=== PATIENT | male | born 1970 | race Caucasian/White ===

== ENCOUNTER 2024-06-22 13:00 | Observation (INO) ==
[2024-06-22] MEDS: NOZIN NASAL SANITIZER TP ONE (10:24)
[2024-06-22] MEDS: NS 1,000 ML IV 1,000 ML ONE (10:45)
[2024-06-22 11:23] VITALS: BMI 24.1
[~2024-06-22 13:00] MED LIST: BARHEMSYS INJ IVP PRN; BENADRYL INJ 50 MG VIAL IVP PRN; DILAUDID INJ IVP PRN; ZOFRAN INJ 4 MG VIAL IVP PRN
[2024-06-22] MEDS: NS 100 ML IV 100 ML ONE (14:37)
[2024-06-22] MEDS: ANCEF VIAL 1 GRAM ONE (14:37)
[2024-06-22] MEDS: NS 1,000 ML IV 900 ML IV PRN (14:40)
[2024-06-22] MEDS: VERSED IVP PRN (14:44)
[2024-06-22] MEDS: PEPCID 20 MG VIAL IVP PRN (14:45)
[2024-06-22] MEDS: REGLAN INJ 10 MG VIAL IVP PRN (14:45)
[2024-06-22] MEDS: ZOFRAN INJ 4 MG VIAL IVP PRN ×2 (14:45→18:15)
[2024-06-22] MEDS ORDERED: ULTANE GAS IN ONE (14:47)
[2024-06-22] MEDS: ANCEF VIAL 1 GRAM IV PRN (14:47)
[2024-06-22] MEDS: FENTANYL VIAL INJ 100 mcg ONE (14:47)
[2024-06-22] MEDS: ZOFRAN INJ 4 MG VIAL ONE (14:47)
[2024-06-22] MEDS ORDERED: XYLOCAINE 2 % (PLAIN) ONE (14:47)
[2024-06-22] MEDS: DIPRIVAN VIAL 20 ML ONE (14:47)
[2024-06-22] MEDS: PEPCID 20 MG VIAL ONE (14:47)
[2024-06-22] MEDS: VERSED ONE (14:47)
[2024-06-22] MEDS ORDERED: KETAMINE HCL ONE (14:47)
[2024-06-22] MEDS: REGLAN INJ 10 MG VIAL ONE (14:47)
[2024-06-22] MEDS: DECADRON INJ ONE (14:49)
[2024-06-22] MEDS: XYLOCAINE 2 % (PLAIN) INJ PRN (14:50)
[2024-06-22] MEDS: DIPRIVAN VIAL 150 ML IVP PRN (14:51)
[2024-06-22] MEDS ORDERED: TYLENOL 325 MG TAB PO PRN (14:55)
[2024-06-22] MEDS ORDERED: PERCOCET TAB 5/325 MG PO PRN (14:55)
[2024-06-22] MEDS ORDERED: DILAUDID INJ IVP PRN (14:55)
[2024-06-22] MEDS: EPHEDRINE SULFATE INJ ONE (15:01)
[2024-06-22] MEDS: MARCAINE 0.25% INJ ONE (15:07)
[2024-06-22] MEDS: DECADRON INJ IVP PRN (15:25)
[2024-06-22] MEDS: KETAMINE HCL IV PRN (15:29)
[2024-06-22] MEDS: EPHEDRINE SULFATE INJ IVP PRN (15:47)
[2024-06-22] MEDS: FENTANYL VIAL INJ 100 mcg IVP PRN (15:50)
[2024-06-22] MEDS: PRECEDEX INJ VIAL IVP PRN (16:56)
[2024-06-22] MEDS: COLACE CAP 100 MG PO SCH (20:48)
[2024-06-23] MEDS: NS 1,000 ML IV 1,000 ML IV SCH (05:12)
[2024-06-23 06:00] LABS: BLOOD UREA NITROGEN 15 mg/dL (7-18); CALCIUM 8.9 mg/dL (8.5-10.1); CARBON DIOXIDE 26.3 mmol/L (21-32); CHLORIDE 102 mmol/L (98-107); COR NA(FOR HYPERGLY) 144 mmol/L (136-145); CREATININE 0.85 mg/dL (0.70-1.30); GLUCOSE 357 mg/dL (65-99); POTASSIUM 4.4 mmol/L (3.5-5.1); SODIUM 138 mmol/L (136-145); eGFR NON BLACK RACES > 60 (>60)
[2024-06-23] MEDS ORDERED: ZOFRAN ODT PO PRN (08:02)
[2024-06-23] MEDS: LOPRESSOR TAB 25 MG PO SCH (08:28)
--- NOTE | 2024-06-23 08:28 | NOTE.SOAP ---
Soap Note Note for Day of Date of Exam: 06/23/24 Subjective Data Subjective Data: Patient is POD#1 from TTC nail of right foot. He denies any nausea, vomiting, fever, chills, shortness of breath, chest pain, sweating. Patient is doing much better than last night per his parents who are in the room. Objective Data Objective Data: Right Lower Extremity Exam: Dressing slightly soaked. Splint taken down. Surgical sites examined. Healing well. No hematoma. Alignment drastically improved compared to pre-operative. Applied new dressing of 4x4s, Webroll, RANDELL, Splint. No calf or thigh pain. No signs or symptoms of DVT, PE, or Compartment Syndrome. Assessment Assessment: 53 year old M POD#1 TTC Arthrodesis, Right Ankle Plan Plan: - Leave dressing clean, dry, and intact. - Do not change. - Non weight bearing to right lower extremity. - DVT Px on board. - PRN Pain regimen. - Awaiting placement for [facility].
[2024-06-23] MEDS: ROBAXIN PO SCH (08:29)
[2024-06-23] MEDS: FLOMAX PO SCH (08:29)
[2024-06-23] MEDS: VITAMIN C PO SCH (08:29)
[2024-06-23] MEDS: NEURONTIN CAP 300 MG PO SCH (08:29)
[2024-06-23] MEDS: NORVASC TAB 10 MG PO SCH (08:29)
[2024-06-23] MEDS: ZINC SULFATE PO SCH (08:29)
[2024-06-23] MEDS: GLUCOTROL PO SCH (08:30)
[2024-06-23] MEDS: LASIX PO SCH (08:30)
[2024-06-23] MEDS: LOVENOX INJ 40 MG SYR SC SCH (08:31)
[2024-06-23] MEDS: GLUCOPHAGE PO SCH (08:31)
[2024-06-23] MEDS: GLUCOPHAGE ONE (09:01)
[2024-06-23] MEDS: HIPREX PO SCH (10:30)
[2024-06-23] MEDS: NovoLIN R (or HumuLIN R) SUBCUT PRN (10:45)
--- NOTE | 2024-06-23 13:01 | NOTE.SOAP ---
Soap Note Note for Day of Date of Exam: 06/23/24 Subjective Data Subjective Data: POD #1 after right ankle fusion and hardware removal. New plan is placement in subacute rehab. Mother is at bedside. Nurse will check with case management about process. Patient denies any overnight events. Currently eaten breakfast and doing well. Objective Data Objective Data: Well-developed, well-nourished male in no acute distress. Hearing intact conversation. Head NCAT. Heart regular rate and rhythm. Lungs are clear. Mood and affect are appropriate. Assessment Assessment: 1. Right ankle fusion-continue per podiatry. Continue pain control. PT/OT consult and plan for [facility] at discharge. 2. Hypertension-stable. Continue current. 3. DPN 2-continue current.
[2024-06-23] MEDS ORDERED: GLUCOPHAGE ONE (20:26)
[2024-06-23] MEDS: SNACK - Diabetic Appropriate PO SCH (20:40)
[2024-06-24 06:16] LABS: BASOPHILS # (AUTO) 0.1 X10^3/uL (0.0-0.1); BASOPHILS % (AUTO) 0.9 % (0.2-1.0); EOSINOPHILS # (AUTO) 0.3 x10^3/uL (0.0-0.2); EOSINOPHILS % (AUTO) 2.6 % (0.9-2.9); HEMATOCRIT 30.8 % (42.0-54.0); HEMOGLOBIN 10.4 g/dL (13.5-18.0); LYMPHOCYTES # (AUTO) 1.8 X10^3/uL (1.3-2.9); LYMPHOCYTES % (AUTO) 14.2 % (21.0-51.0); MEAN CORPUSCULAR HEMOGLOBIN 28.7 pg (27.0-34.0); MEAN CORPUSCULAR HGB CONC 33.7 g/dL (33.0-35.0); MEAN CORPUSCULAR VOLUME 85.2 fL (80.0-100.0); MEAN PLATELET VOLUME 10.5 fL (7.4-11.0); MONOCYTES # (AUTO) 1.3 x10^3/uL (0.3-0.8); MONOCYTES % (AUTO) 10.3 % (0.0-13.0); NEUTROPHILS # (AUTO) 8.9 x10^3/uL (2.2-4.8); PLATELET COUNT 189 X10^3/uL (150.0-450.0); RED BLOOD COUNT 3.61 X10^6/uL (4.7-6.0); RED CELL DISTRIBUTION WIDTH 14.8 % (11.6-16.5); WHITE BLOOD COUNT 12.4 X10^3/uL (3.6-10.0)
[2024-06-24] MEDS ORDERED: GLUCOPHAGE ONE ×2 (08:10→19:44)
--- NOTE | 2024-06-24 18:28 | NOTE.SOAP ---
Soap Note Note for Day of Date of Exam: 06/24/24 Subjective Data Subjective Data: Father at bedside. Nurse present for daily rounds. No acute events. Still pending placement at rehab facility. Objective Data Objective Data: Well-developed, well-nourished male in no acute distress. Hearing intact conversation. Heart regular rate and rhythm. Lungs are clear. New dressing of the right lower extremity. Assessment Assessment: 1. Right ankle fusion-continue per podiatry. Continue pain control. PT/OT consult and plan for LINDA at discharge. 2. Hypertension-stable. Continue current. 3. DPN 2-continue current. 4. 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
[2024-06-25 06:10] LABS: BASOPHILS # (AUTO) 0.1 X10^3/uL (0.0-0.1); EOSINOPHILS # (AUTO) 0.4 x10^3/uL (0.0-0.2); EOSINOPHILS % (AUTO) 4.1 % (0.9-2.9); HEMATOCRIT 32.1 % (42.0-54.0); HEMOGLOBIN 10.8 g/dL (13.5-18.0); LYMPHOCYTES # (AUTO) 1.8 X10^3/uL (1.3-2.9); LYMPHOCYTES % (AUTO) 19.5 % (21.0-51.0); MEAN CORPUSCULAR HEMOGLOBIN 28.9 pg (27.0-34.0); MEAN CORPUSCULAR HGB CONC 33.7 g/dL (33.0-35.0); MEAN CORPUSCULAR VOLUME 85.9 fL (80.0-100.0); MEAN PLATELET VOLUME 10.4 fL (7.4-11.0); MONOCYTES # (AUTO) 0.9 x10^3/uL (0.3-0.8); MONOCYTES % (AUTO) 9.8 % (0.0-13.0); NEUTROPHILS # (AUTO) 6.1 x10^3/uL (2.2-4.8); NEUTROPHILS % (AUTO) 65.6 % (42.0-75.0); PLATELET COUNT 194 X10^3/uL (150.0-450.0); RED BLOOD COUNT 3.74 X10^6/uL (4.7-6.0); RED CELL DISTRIBUTION WIDTH 14.6 % (11.6-16.5); WHITE BLOOD COUNT 9.3 X10^3/uL (3.6-10.0)
[2024-06-25 06:28] LABS: ALANINE AMINOTRANSFERASE 17 Units/L (12-78); ALBUMIN 3.1 g/dL (3.4-5.0); ALKALINE PHOSPHATASE 75 Units/L (46-116); ASPARTATE AMINO TRANSFERASE 8 Units/L (15-37); BLOOD UREA NITROGEN 4 mg/dL (7-18); CALCIUM 8.8 mg/dL (8.5-10.1); CARBON DIOXIDE 30.5 mmol/L (21-32); CHLORIDE 106 mmol/L (98-107); COR CA(FOR HYPOALB) 9.5 mg/dL (8.5-10.1); GLUCOSE 96 mg/dL (65-99); POTASSIUM 3.8 mmol/L (3.5-5.1); SODIUM 142 mmol/L (136-145); TOTAL PROTEIN 6.5 g/dL (6.4-8.2); eGFR NON BLACK RACES > 60 (>60)
[2024-06-25] MEDS ORDERED: CONSULT PHARMACY - POTASSIUM & MAGNESIUM XX SCH ×2 (07:00→08:00)
[2024-06-25] MEDS ORDERED: GLUCOPHAGE ONE ×2 (08:16→20:16)
[2024-06-25] MEDS: K-DUR TAB 20 MEQ PO SCH (08:46)
[2024-06-25] MEDS: MAG-OX TAB PO SCH (08:46)
[2024-06-25] MEDS: ZOFRAN INJ 4 MG VIAL IVP PRN (08:47)
--- NOTE | 2024-06-25 15:22 | NOTE.SOAP ---
Soap Note Note for Day of Date of Exam: 06/25/24 Subjective Data Subjective Data: GIL events. Foot pain is well-controlled. No BM since admission. Objective Data Objective Data: RRR. CTA b/l. Bowel sounds present. Mood/affect appropriate. Assessment Assessment: 1. Right ankle fusion-continue per podiatry. Continue pain contro l. PT/OT consult and plan for LINDA at discharge. 2. Hypertension-stable. Continue current. 3. DPN 2-continue current. 4. Post-op constipation- colace/MiraLAX.
[2024-06-25] MEDS: MILK OF MAGNESIA PO SCH (15:25)
[2024-06-25] MEDS ORDERED: COLACE CAP 100 MG PO SCH (21:00)
[2024-06-26 04:53] LABS: BASOPHILS # (AUTO) 0.1 X10^3/uL (0.0-0.1); EOSINOPHILS # (AUTO) 0.5 x10^3/uL (0.0-0.2); EOSINOPHILS % (AUTO) 5.5 % (0.9-2.9); HEMATOCRIT 31.6 % (42.0-54.0); HEMOGLOBIN 10.9 g/dL (13.5-18.0); LYMPHOCYTES # (AUTO) 1.8 X10^3/uL (1.3-2.9); LYMPHOCYTES % (AUTO) 20.2 % (21.0-51.0); MEAN CORPUSCULAR HEMOGLOBIN 29.6 pg (27.0-34.0); MEAN CORPUSCULAR HGB CONC 34.6 g/dL (33.0-35.0); MEAN CORPUSCULAR VOLUME 85.6 fL (80.0-100.0); MEAN PLATELET VOLUME 10.3 fL (7.4-11.0); MONOCYTES # (AUTO) 0.8 x10^3/uL (0.3-0.8); MONOCYTES % (AUTO) 8.9 % (0.0-13.0); NEUTROPHILS # (AUTO) 5.7 x10^3/uL (2.2-4.8); NEUTROPHILS % (AUTO) 64.4 % (42.0-75.0); PLATELET COUNT 209 X10^3/uL (150.0-450.0); RED BLOOD COUNT 3.69 X10^6/uL (4.7-6.0); RED CELL DISTRIBUTION WIDTH 14.9 % (11.6-16.5); WHITE BLOOD COUNT 8.8 X10^3/uL (3.6-10.0)
[2024-06-26 05:10] LABS: ALANINE AMINOTRANSFERASE 18 Units/L (12-78); ALBUMIN 3.1 g/dL (3.4-5.0); ALKALINE PHOSPHATASE 79 Units/L (46-116); ASPARTATE AMINO TRANSFERASE 9 Units/L (15-37); BLOOD UREA NITROGEN 7 mg/dL (7-18); CALCIUM 8.6 mg/dL (8.5-10.1); CARBON DIOXIDE 31.5 mmol/L (21-32); CHLORIDE 103 mmol/L (98-107); COR CA(FOR HYPOALB) 9.3 mg/dL (8.5-10.1); COR NA(FOR HYPERGLY) 141 mmol/L (136-145); GLUCOSE 161 mg/dL (65-99); MAGNESIUM 2.2 mg/dL (2.0-2.9); POTASSIUM 4.1 mmol/L (3.5-5.1); SODIUM 140 mmol/L (136-145); TOTAL PROTEIN 6.8 g/dL (6.4-8.2); eGFR NON BLACK RACES > 60 (>60)
[2024-06-26] MEDS: GLUCOPHAGE ONE ×2 (08:49→21:07)
--- NOTE | 2024-06-26 14:54 | NOTE.SOAP ---
Soap Note Note for Day of Date of Exam: 06/26/24 Subjective Data Subjective Data: Nurse and father at bedside. Did have a bowel movement yesterday. No complaints today. Eating lunch in his bedside chair Objective Data Objective Data: Well-developed, well-nourished male in no acute distress. Heart regular rate and rhythm. Lungs are clear. Dressings are clean and dry. Assessment Assessment: 1. Right ankle fusion-continue per podiatry. Continue pain control. PT/OT consult and plan for LINDA at discharge. 2. Hypertension-stable. Continue current. 3. DPN 2-continue current. 4. Post-op constipation- resolved. Colace/MiraLAX prn.
[2024-06-26] MEDS ORDERED: BUTT CREAM (COMPOUND) TOP PRN (17:08)
[2024-06-27] MEDS ORDERED: MILK OF MAGNESIA PO PRN (01:52)
[2024-06-27 05:05] LABS: BASOPHILS # (AUTO) 0.1 X10^3/uL (0.0-0.1); EOSINOPHILS # (AUTO) 0.7 x10^3/uL (0.0-0.2); EOSINOPHILS % (AUTO) 8.1 % (0.9-2.9); HEMATOCRIT 31.9 % (42.0-54.0); HEMOGLOBIN 10.9 g/dL (13.5-18.0); LYMPHOCYTES # (AUTO) 1.7 X10^3/uL (1.3-2.9); LYMPHOCYTES % (AUTO) 19.8 % (21.0-51.0); MEAN CORPUSCULAR HEMOGLOBIN 29.5 pg (27.0-34.0); MEAN CORPUSCULAR HGB CONC 34.1 g/dL (33.0-35.0); MEAN CORPUSCULAR VOLUME 86.4 fL (80.0-100.0); MEAN PLATELET VOLUME 10.8 fL (7.4-11.0); MONOCYTES # (AUTO) 0.7 x10^3/uL (0.3-0.8); MONOCYTES % (AUTO) 7.6 % (0.0-13.0); NEUTROPHILS # (AUTO) 5.4 x10^3/uL (2.2-4.8); NEUTROPHILS % (AUTO) 63.5 % (42.0-75.0); PLATELET COUNT 237 X10^3/uL (150.0-450.0); RED BLOOD COUNT 3.69 X10^6/uL (4.7-6.0); RED CELL DISTRIBUTION WIDTH 14.7 % (11.6-16.5); WHITE BLOOD COUNT 8.5 X10^3/uL (3.6-10.0)
[2024-06-27 05:29] LABS: ALANINE AMINOTRANSFERASE 17 Units/L (12-78); ALBUMIN 3.2 g/dL (3.4-5.0); ALKALINE PHOSPHATASE 80 Units/L (46-116); ASPARTATE AMINO TRANSFERASE 8 Units/L (15-37); BLOOD UREA NITROGEN 6 mg/dL (7-18); CALCIUM 8.8 mg/dL (8.5-10.1); CARBON DIOXIDE 28.7 mmol/L (21-32); CHLORIDE 104 mmol/L (98-107); COR CA(FOR HYPOALB) 9.4 mg/dL (8.5-10.1); COR NA(FOR HYPERGLY) 140 mmol/L (136-145); CREATININE 0.64 mg/dL (0.70-1.30); GLUCOSE 148 mg/dL (65-99); POTASSIUM 4.2 mmol/L (3.5-5.1); SODIUM 139 mmol/L (136-145); TOTAL PROTEIN 7.1 g/dL (6.4-8.2); eGFR NON BLACK RACES > 60 (>60)
[2024-06-27] MEDS ORDERED: GLUCOPHAGE ONE (07:58)
[2024-06-27 15:05] VITALS: BP 135/63; PULSE 87; RESP 20; TEMP 99.2; O2SAT 96
== END 2024-06-27 15:10 ==
LOC: OBS → MED/SURG 17:39
PROVIDERS: ADMIT Obstetrics & Gynecology Obstetrics; ATTEND Obstetrics & Gynecology Obstetrics
PROC: HARDREM (ICD-10-PCS; 2024-06-22 13:15)
DX: K59.09 Other constipation; E11.42 Type 2 diabetes mellitus with diabetic polyneuropathy; E11.65 Type 2 diabetes mellitus with hyperglycemia; R26.89 Other abnormalities of gait and mobility; M12.571 Traumatic arthropathy, right ankle and foot; I10 Essential (primary) hypertension; M21.371 Foot drop, right foot; M24.571 Contracture, right ankle; Z60.8 Other problems related to social environment